=== PATIENT | female | born 1980 | race Caucasian/White ===

== ENCOUNTER 2021-02-21 07:26 | Emergency (ER) | payer OTHER ==
[2021-02-21 08:21] LABS: CORONAVIRUS COVID-19 NAA NEGATIVE (NEGATIVE)
--- NOTE | 2021-02-21 09:29 | EDM.PDOC ---
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 From the [place] area, does admit to having some dysuria took 4 tablets of clindamycin Bilateral Abdominal Pain Score (Numeric/FACES): 6 - Related Data Allergies Allergy/AdvReac Type Severity Reaction Status Date / Time cephalexin [From Keflex] Allergy Nausea and Verified 02/21/21 07:36 Vomiting Penicillins Allergy Rash Verified 02/21/21 07:36 Home Meds: Home Meds Escitalopram Oxalate [Lexapro] 5 mg PO DAILY 02/21/21 [History] Gabapentin [Neurontin] 200 mg PO TID 02/21/21 [History] Past Medical History Psychiatric History: Reports: Addiction, Depression Social & Family History - Tobacco Use Tobacco Use Status *Q: Current Every Day Tobacco User Years of Tobacco use: 30 Packs/Tins Daily: 0.5 - Recreational Drug Use Recreational Drug Use: Yes Drug Use in Last 12 Months: Yes Recreational Drug Type: Reports: Marijuana/Hashish, Methaqualone Recreational Drug Use Frequency: Daily Recreational Drug Last Use: 02/19/2021 ED ROS GENERAL - Review of Systems Review Of Systems: See Below Constitutional: Reports: Fever, Fatigue Respiratory: Reports: No Symptoms Cardiovascular: Reports: No Symptoms GI/Abdominal: Reports: Abdominal Pain (Suprapubic) : Reports: Dysuria ED EXAM, GENERAL - Physical Exam Exam: See Below Exam Limited By: No Limitations General Appearance: Alert, WD/WN, No Apparent Distress Respiratory/Chest: No Respiratory Distress, Lungs Clear, Normal Breath Sounds, No Accessory Muscle Use, Chest Non-Tender Cardiovascular: Regular Rate, Rhythm, No Murmur GI/Abdominal: Normal Bowel Sounds, Soft, Non-Tender Course - Vital Signs Last Recorded V/S: Last Vital Signs Temp 97.6 F 02/21/21 07:33 Pulse 79 02/21/21 07:33 Resp 16 02/21/21 07:33 BP 103/62 02/21/21 07:33 Pulse Ox 97 02/21/21 07:33 - Orders/Labs/Meds Orders: Active Orders 24 hr Category Date Time Status CULTURE URINE [RM] Urgent Lab 02/21/21 09:24 Ordered Isolation [COMM] Stat Oth 02/21/21 07:46 Ordered Labs: Laboratory Tests 02/21/21 02/21/21 Range/Units 07:46 08:50 Urine Color Yellow (YELLOW) Urine Appearance Slightly cloudy A (CLEAR) Urine pH 6.0 (5.0-8.0) Ur Specific [place] 1.025 (1.008-1.030) Urine Protein Negative (NEGATIVE) mg/dL Urine Glucose (UA) Negative (NEGATIVE) mg/dL Urine Ketones Negative (NEGATIVE) mg/dL Urine Occult Blood Moderate H (NEGATIVE) Urine Nitrite Negative (NEGATIVE) Urine Bilirubin Negative (NEGATIVE) Urine Urobilinogen 1.0 (0.2-1.0) EU/dL Ur Leukocyte Esterase Negative (NEGATIVE) Urine RBC 10-20 H (0-5) Urine WBC 0-5 (0-5) Ur Epithelial Cells Many Amorphous Sediment Few Urine Bacteria Moderate Urine Mucus Many Influenza Type A RNA Negative (NEGATIVE) RSV RNA (INAAT) Negative (NEGATIVE) Influenza Type B RNA Negative (NEGATIVE) SARS-CoV-2 RNA (LAURA) Negative (NEGATIVE) Departure - Departure Time of Disposition: 09:28 Disposition: Home, Self-Care 01 Condition: Fair Clinical Impression: UTI, Urinary tract infectious disease - Discharge Information Instructions: Urinary Tract Infection, Adult Referrals: PCP,None [Primary Care Provider] - Additional Instructions: Take full course of antibiotics, please followup with your primary care provider in 3-5 days if not better, please call return to the emergency department with worsening of symptoms. Sepsis Event Note (ED) - Evaluation Sepsis Screening Result: No Definite Risk - Focused Exam Vital Signs: Vital Signs Temp Pulse Resp BP Pulse Ox 02/21/21 07:33 97.6 F 79 16 103/62 97 - My Orders Last 24 Hours: My Active Orders 02/21/21 07:46 Isolation [COMM] Stat 02/21/21 09:24 CULTURE URINE [RM] Urgent - Assessment/Plan Last 24 Hours: My Active Orders 02/21/21 07:46 Isolation [COMM] Stat 02/21/21 09:24 CULTURE URINE [RM] Urgent Plan: Assessment Acuity = acute Site and laterality = dysuria Etiology = possible underlying urinary tract infection by bacterial cause Manifestations = none Location of injury = Home Lab values = urinalysis 5-10 RBCs consistent with a hematuria WBCs are negative however there is moderate amount of bacteria Plan I elected to try empiric treatment Bactrim DS 1 tab p.o. twice daily x3 days cultures pending follow-up primary care in 3 to 5 days if not better This note was dictated using [employer] voice recognition software please call with any questions on syntax or grammar.
== END 2021-02-21 09:50 | disposition home or self-care (01) ==
LOC: JP.ED 07:26
DX: N39.0 Urinary tract infection, site not specified (principal); Z88.0 Allergy status to penicillin; Z88.1 Allergy status to other antibiotic agents; Z72.0 Tobacco use; Z20.822 Contact with and (suspected) exposure to COVID-19
CPT/HCPCS: 0241U; 81001; 87086; 99283

== ENCOUNTER 2022-08-28 15:05 | Emergency (ER) | payer SELFPAY ==
[2022-08-28] MEDS ORDERED: Sodium Chloride 0.9% 10 ML Syringe FLUSH PRN (15:25)
[2022-08-28] MEDS ORDERED: Sodium Chloride 0.9% 1,000 ML IV ONE (15:25)
[2022-08-28 15:40] LABS: BASOPHILS ABSOLUTE AUTO 0.05 K/uL (0.00-0.10); BASOPHILS PERCENT AUTO 0.6 % (0.1-1.3); EOSINOPHILS ABSOLUTE AUTO 0.19 K/uL (0.00-0.40); EOSINOPHILS PERCENT AUTO 2.2 % (0.0-5.4); HEMATOCRIT 31.8 % (34.3-46.0); HEMOGLOBIN 10.7 g/dL (11.2-15.5); IMMATURE GRAN PERCENT AUTO 0.2 % (0.0-0.7); LYMPHOCYTES ABSOLUTE AUTO 1.11 K/uL (0.8-3.3); LYMPHOCYTES PERCENT AUTO 12.7 % (11.4-47.7); MEAN CORPUSCULAR HEMOGLOBIN 31.8 pg (31.6-35.5); MEAN CORPUSCULAR HGB CONC 33.6 g/dL (31.6-35.5); MEAN CORPUSCULAR VOLUME 94.6 fL (81.4-99.0); MONOCYTES ABSOLUTE AUTO 0.26 K/uL (0.20-0.90); NEUTROPHILS ABSOLUTE AUTO 7.12 K/uL (1.0-7.6); NEUTROPHILS PERCENT AUTO 81.3 % (40.0-78.1); PLATELET COUNT,PLT 278 K/uL (130-375); RED BLOOD CELL COUNT 3.36 M/uL (3.77-5.24); WHITE BLOOD CELL COUNT,WBC 8.8 K/uL (3.2-11.0)
[2022-08-28 15:44] LABS: IMMATURE GRAN ABSOLUTE AUTO 0.02 K/uL (0.00-0.23)
[2022-08-28 16:00] LABS: A/G RATIO 0.9 (1.2-2.2); ALANINE AMINOTRANSFERASE,ALT 24 U/L (12-78); ALKALINE PHOSPHATASE 75 U/L (46-116); ASPARTATE AMNIOTRANSFERASE,AST 21 U/L (15-37); BILIRUBIN TOTAL 0.3 mg/dL (0.2-1.0); BLOOD UREA NITROGEN,BUN 17 mg/dL (7-18); CALCIUM 8.2 mg/dL (8.5-10.1); CARBON DIOXIDE,CO2 27 mmol/L (21-32); CHLORIDE,CL 105 mmol/L (100-108); EST CRCL DRUG DOSING (CG) 71.27 mL/min; ESTIMATED GFR 72 mL/min (>60); GLUCOSE RANDOM 78 mg/dL (74-106); POTASSIUM,K 3.9 mmol/L (3.6-5.2); PROTEIN TOTAL,TP 6.3 g/dL (6.4-8.2); SODIUM,NA 139 mmol/L (140-148)
[2022-08-28 16:01] LABS: ANION GAP 10.9 mmol/L (5.0-14.0)
[2022-08-28] MEDS ORDERED: Dextrose 5%-0.9% NaCl 1,000 ML IV SCH (17:00)
[2022-08-28 23:04] LABS: AMPHETAMINES SCREEN, URINE PRESUMPTIVE POSITIVE (NEGATIVE); BARBITURATE SCREEN,URINE NEGATIVE (NEGATIVE); BENZODIAZEPINES SCREEN,URINE NEGATIVE (NEGATIVE); METHAMPHETAMINES SCREEN, URINE PRESUMPTIVE POSITIVE (NEGATIVE)
[2022-08-28 23:05] LABS: METHADONE SCREEN, URINE NEGATIVE (NEGATIVE); OXYCODONE SCREEN,URINE NEGATIVE (NEGATIVE); PROPOXYPHENE SCREEN,URINE NEGATIVE (NEGATIVE); THC SCREEN,URINE 50 NG/ML PRESUMPTIVE POSITIVE (NEGATIVE)
== END 2022-08-29 10:00 ==
LOC: JP.ED 15:05
DX: T43.212A Poisoning by selective serotonin and norepinephrine reuptake inhibitors, intentional self-harm, initial encounter (principal); F32.A Depression, unspecified; D64.9 Anemia, unspecified; F15.10 Other stimulant abuse, uncomplicated; Z88.0 Allergy status to penicillin; Z88.1 Allergy status to other antibiotic agents; Z20.822 Contact with and (suspected) exposure to COVID-19
CPT/HCPCS: 36415; 80053; 80143; 80179; 80305; 80307; 81025; 85025; 87635; 93005; 96360; 96361; 99285; J3490; J7030; 93010; 99284; U0002

== ENCOUNTER 2022-12-11 08:39 | Emergency (ER) | payer MEDICAID ==
[2022-12-11] MEDS ORDERED: Sodium Chloride 0.9% 1,000 ML IV ONE ×2 (08:51→09:00)
[2022-12-11 09:25] LABS: BASE EXCESS VENOUS -4.8 mm/L; BASOPHILS ABSOLUTE AUTO 0.04 K/uL (0.00-0.10); BASOPHILS PERCENT AUTO 0.3 % (0.1-1.3); BICARBONATE,VENOUS 19.6 mmol/L; EOSINOPHILS ABSOLUTE AUTO 0.09 K/uL (0.00-0.40); EOSINOPHILS PERCENT AUTO 0.7 % (0.0-5.4); HEMATOCRIT 28.2 % (34.3-46.0); HEMOGLOBIN 9.6 g/dL (11.2-15.5); IMMATURE GRAN ABSOLUTE AUTO 0.07 K/uL (0.00-0.23); IMMATURE GRAN PERCENT AUTO 0.6 % (0.0-0.7); LYMPHOCYTES PERCENT AUTO 8.3 % (11.4-47.7); MEAN CORPUSCULAR HEMOGLOBIN 31.4 pg (31.6-35.5); MEAN CORPUSCULAR VOLUME 92.2 fL (81.4-99.0); METHEMOGLOBIN 1.2 %; MONOCYTES PERCENT AUTO 3.3 % (3.3-12.6); NEUTROPHILS ABSOLUTE AUTO 10.49 K/uL (1.0-7.6); NEUTROPHILS PERCENT AUTO 86.8 % (40.0-78.1); O2 SATURATION VENOUS 88.3; OXYHEMOGLOBIN 82.8 %; PCO2 VENOUS 36.2 mm/Hg; PH,VENOUS 7.353 (7.350-7.450); PLATELET COUNT,PLT 351 K/uL (130-375); PO2 VENOUS 54.9 mm/Hg; RED BLOOD CELL COUNT 3.06 M/uL (3.77-5.24); TOTAL HEMOGLOBIN 10.1 g/dL (12.0-16.0); WHITE BLOOD CELL COUNT,WBC 12.1 K/uL (3.2-11.0)
[2022-12-11 09:59] LABS: A/G RATIO 0.8 (1.2-2.2); ALANINE AMINOTRANSFERASE,ALT 54 U/L (12-78); ALBUMIN 2.7 g/dL (3.4-5.0); ALKALINE PHOSPHATASE 88 U/L (46-116); ASPARTATE AMNIOTRANSFERASE,AST 24 U/L (15-37); BILIRUBIN TOTAL 0.4 mg/dL (0.2-1.0); BLOOD UREA NITROGEN,BUN 19 mg/dL (7-18); CALCIUM 7.4 mg/dL (8.5-10.1); CARBON DIOXIDE,CO2 20 mmol/L (21-32); CHLORIDE,CL 107 mmol/L (100-108); CREATININE 0.8 mg/dL (0.6-1.0); EST CRCL DRUG DOSING (CG) 71.71 mL/min; ESTIMATED GFR 94 mL/min (>60); GLUCOSE RANDOM 131 mg/dL (74-106); MAGNESIUM 1.7 mg/dL (1.8-2.4); PHOSPHORUS 3.4 mg/dL (2.5-4.9); PROTEIN TOTAL,TP 5.9 g/dL (6.4-8.2); SODIUM,NA 137 mmol/L (140-148)
[2022-12-11] MEDS ORDERED: diphenhydrAMINE 50 MG/ML SDV IVPUSH PRN (10:18)
[2022-12-11] MEDS ORDERED: Calcium Carbonate 500 MG Tab.Chew PO ONE (10:19)
[2022-12-11] MEDS ORDERED: Magnesium Oxide 400 MG Tab PO ONE (10:20)
[2022-12-11 10:31] LABS: APPEARANCE,URINE CLOUDY (CLEAR); BILIRUBIN,URINE NEGATIVE (NEGATIVE); COLOR,URINE YELLOW (YELLOW); GLUCOSE,URINE NEGATIVE (NEGATIVE); KETONES,URINE NEGATIVE (NEGATIVE); LEUKOCYTE ESTERASE,URINE SMALL (NEGATIVE); NITRITE,URINE NEGATIVE (NEGATIVE); OCCULT BLOOD,URINE TRACE-LYSED (NEGATIVE); PH,URINE 5.5 (5.0-8.0); PROTEIN,URINE NEGATIVE (NEGATIVE); UROBILINOGEN,URINE 0.2 EU/dL (0.2-1.0)
[2022-12-11 10:38] LABS: AMPHETAMINES SCREEN, URINE PRESUMPTIVE POSITIVE (NEGATIVE); BARBITURATE SCREEN,URINE NEGATIVE (NEGATIVE); BENZODIAZEPINES SCREEN,URINE NEGATIVE (NEGATIVE); METHADONE SCREEN, URINE NEGATIVE (NEGATIVE); METHAMPHETAMINES SCREEN, URINE PRESUMPTIVE POSITIVE (NEGATIVE); OXYCODONE SCREEN,URINE NEGATIVE (NEGATIVE); PROPOXYPHENE SCREEN,URINE NEGATIVE (NEGATIVE); THC SCREEN,URINE 50 NG/ML NEGATIVE (NEGATIVE)
[2022-12-11 10:41] LABS: AMORPHOUS SEDIMENT,URINE NOT SEEN; BACTERIA,URINE MANY; EPITHELIAL CELLS,URINE FEW; MUCUS,URINE FEW; RBC,URINE 0-5 (0-5); WBC,URINE 20-30 (0-5)
[2022-12-11] MEDS ORDERED: Nitrofurantoin Monohydrate/Macrocrystalline 100 MG Cap PO ONE (13:07)
== END 2022-12-11 18:51 | disposition home or self-care (01) ==
LOC: JP.ED 08:39
DX: T43.502A Poisoning by unspecified antipsychotics and neuroleptics, intentional self-harm, initial encounter (principal); D64.9 Anemia, unspecified; E83.42 Hypomagnesemia; E83.51 Hypocalcemia; R82.71 Bacteriuria; R94.31 Abnormal electrocardiogram [ECG] [EKG]; R57.9 Shock, unspecified; F15.10 Other stimulant abuse, uncomplicated; R82.81 Pyuria; Z88.1 Allergy status to other antibiotic agents; Z88.0 Allergy status to penicillin; Z79.899 Other long term (current) drug therapy
CPT/HCPCS: 36415; 80053; 80143; 80179; 80305; 80307; 81001; 82550; 82803; 83605; 83735; 84100; 84484; 85025; 87040; 87086; 87088; 87186; 93005; 96360; 99285; J7030

== ENCOUNTER 2024-08-03 15:45 | Emergency (ER) | payer SELFPAY ==
[2024-08-03 16:09] LABS: BASOPHILS ABSOLUTE AUTO 0.05 K/uL (0.00-0.10); BASOPHILS PERCENT AUTO 0.8 % (0.1-1.3); EOSINOPHILS ABSOLUTE AUTO 0.08 K/uL (0.00-0.40); EOSINOPHILS PERCENT AUTO 1.2 % (0.0-5.4); HEMATOCRIT 33.7 % (34.3-46.0); HEMOGLOBIN 11.4 g/dL (11.2-15.5); IMMATURE GRAN PERCENT AUTO 0.3 % (0.0-0.7); LYMPHOCYTES ABSOLUTE AUTO 1.09 K/uL (0.8-3.3); LYMPHOCYTES PERCENT AUTO 16.5 % (11.4-47.7); MEAN CORPUSCULAR HEMOGLOBIN 32.8 pg (31.6-35.5); MEAN CORPUSCULAR HGB CONC 33.8 g/dL (31.6-35.5); MEAN CORPUSCULAR VOLUME 96.8 fL (81.4-99.0); MONOCYTES ABSOLUTE AUTO 0.21 K/uL (0.20-0.90); MONOCYTES PERCENT AUTO 3.2 % (3.3-12.6); NEUTROPHILS ABSOLUTE AUTO 5.17 K/uL (1.0-7.6); PLATELET COUNT,PLT 281 K/uL (130-375); RED BLOOD CELL COUNT 3.48 M/uL (3.77-5.24); WHITE BLOOD CELL COUNT,WBC 6.6 K/uL (3.2-11.0)
[2024-08-03 16:11] LABS: IMMATURE GRAN ABSOLUTE AUTO 0.02 K/uL (0.00-0.23)
[2024-08-03 16:23] LABS: ANION GAP 6.2 mmol/L (5.0-14.0); CALCIUM 9.2 mg/dL (8.5-10.1); CREATININE 0.8 mg/dL (0.6-1.0); EST CRCL DRUG DOSING (CG) 77.11 mL/min; POTASSIUM,K 3.8 mmol/L (3.6-5.2)
[2024-08-03 16:26] LABS: AMPHETAMINES SCREEN, URINE NEGATIVE (NEGATIVE); BARBITURATE SCREEN,URINE NEGATIVE (NEGATIVE); BENZODIAZEPINES SCREEN,URINE NEGATIVE (NEGATIVE); METHADONE SCREEN, URINE NEGATIVE (NEGATIVE); METHAMPHETAMINES SCREEN, URINE NEGATIVE (NEGATIVE); OXYCODONE SCREEN,URINE NEGATIVE (NEGATIVE); PROPOXYPHENE SCREEN,URINE NEGATIVE (NEGATIVE); THC SCREEN,URINE 50 NG/ML NEGATIVE (NEGATIVE)
[2024-08-03] MEDS: Haloperidol Lactate 5 MG/ML SDV IM ONE (16:32)
[2024-08-04] MEDS: LORazepam 1 MG Tab PO ONE (00:32)
== END 2024-08-04 08:40 | disposition home or self-care (01) ==
LOC: JP.ED 15:45
DX: F11.90 Opioid use, unspecified, uncomplicated (principal); Z88.0 Allergy status to penicillin; Z88.1 Allergy status to other antibiotic agents; Z79.899 Other long term (current) drug therapy
CPT/HCPCS: 36415; 80048; 80305; 80307; 81025; 85025; 96372; 99284; A9270; J1630; 99285